=== PATIENT | male | born 1985 | race Caucasian/White ===

== ENCOUNTER 2017-07-21 17:14 | Emergency (ER) | payer MEDICAID | END 2017-07-21 20:00 | disposition home or self-care (01) | LOC: E/R 20:00 | DX: L03.116 Cellulitis of left lower limb (principal) | CPT/HCPCS: 99282; Z7502 ==

== ENCOUNTER 2018-02-17 17:52 | Emergency (ER) | payer SELFPAY, MEDICAID | END 2018-02-17 19:05 | disposition home or self-care (01) | LOC: FTE 17:52 | DX: B02.9 Zoster without complications (principal) | CPT/HCPCS: 99284 ==

== ENCOUNTER 2018-02-25 16:40 | Emergency (ER) | payer SELFPAY, OTHER | END 2018-02-25 19:16 | disposition home or self-care (01) | LOC: FTE 16:40 | DX: R21 Rash and other nonspecific skin eruption (principal) | CPT/HCPCS: 99282 ==